=== PATIENT | male | born 1960 | race Caucasian/White ===

== ENCOUNTER → 2019-04-30 | Outpatient (CLI) | payer MEDICARE ==
[2019-04-30 11:41] LABS: ALBUMIN 3.6 g/dL (3.5-5.0); BILIRUBIN,TOTAL 0.2 mg/dL (0.2-1.0); CREATININE 1.1 mg/dL (0.5-1.5); POTASSIUM 4.5 mmol/L (3.5-5.1); TOTAL PROTEIN, SERUM 7.4 g/dL (6.0-8.3)
== END | disposition home or self-care (01) ==
LOC: LAB 11:05
PROVIDERS: ATTEND Internal Medicine
DX: M51.37 Other intervertebral disc degeneration, lumbosacral region (principal); I10 Essential (primary) hypertension; Z86.61 Personal history of infections of the central nervous system
CPT/HCPCS: 36415; 80053

== ENCOUNTER → 2019-05-01 | Outpatient (CLI) | payer MEDICARE ==
[~2019-05-01] MED LIST: GADODIAMIDE 10 MMOL/20 ML VIAL IV ONE; LORAZEPAM 2 MG/ML 1 ML VIAL ONE; MIDAZOLAM HCL 1 MG/ML 2ML VIAL ONE
--- NOTE | 2019-05-01 08:45 | NUR ---
MRI BRAIN WITH AND WITHOUT CONTRAST WITH CONSCIOUS SEDATION PATIENT TOLERATED PROCEDURE WELL. HEPLOCK REMOVED AND PATIENT RECOVERED IN RADIOLOGY ROOM. DISCHARGE INSTRUCTIONS GIVEN AND VERBALIZED UNDERSTANDING. DISCHARGED AMBULATORY. AAO X3 WITH NO C/O DISCOMFORT.
== END | disposition home or self-care (01) ==
LOC: RAH 07:52
PROVIDERS: ATTEND Internal Medicine
DX: R29.898 Other symptoms and signs involving the musculoskeletal system (principal); Z86.61 Personal history of infections of the central nervous system
CPT/HCPCS: 70553; A9579; J2060; J2250; 99152; 99153

== ENCOUNTER → 2019-07-10 | Outpatient (CLI) | payer MEDICARE | END | disposition home or self-care (01) | LOC: OIH 11:00 | PROVIDERS: ATTEND Internal Medicine | DX: J44.9 Chronic obstructive pulmonary disease, unspecified (principal) | CPT/HCPCS: 71046 ==

== ENCOUNTER 2019-08-21 12:16 | Emergency (ER) | payer MEDICARE ==
[2019-08-21] MEDS ORDERED: OCTYL 2-CYANOACRYLATE 1 EACH TP ONE (13:02)
[2019-08-21] MEDS ORDERED: TETANUS/DIPHTHERIA TOXOID [ADULT] 0.5 ML VIAL IM ONE (13:27)
== END 2019-08-21 13:43 | disposition home or self-care (01) ==
LOC: EDH 12:16
DX: S51.812A Laceration without foreign body of left forearm, initial encounter (principal); I10 Essential (primary) hypertension; Z87.891 Personal history of nicotine dependence; W18.39XA Other fall on same level, initial encounter; Y93.89 Activity, other specified; Y92.096 Garden or yard of other non-institutional residence as the place of occurrence of the external cause; Y99.8 Other external cause status
CPT/HCPCS: 12032; 90471; 90714

== ENCOUNTER → 2020-07-06 | Outpatient (CLI) | payer MEDICARE | END | disposition home or self-care (01) | LOC: OIH 08:40 | PROVIDERS: ATTEND Internal Medicine | DX: M16.11 Unilateral primary osteoarthritis, right hip (principal) | CPT/HCPCS: 73502 ==

== ENCOUNTER 2021-11-03 23:20 | Emergency (ER) | payer MEDICARE ==
[~2021-11-03] VITALS: Ht 175.3 cm; Wt 81.6 kg
[2021-11-04] MEDS ORDERED: KETOROLAC 60 MG VIAL (30MG/ML) IM ONE (01:00)
[2021-11-04] MEDS ORDERED: ORPHENADRINE CITRATE 30 MG/ML ML IM ONE (01:00)
[2021-11-04] MEDS ORDERED: ORPH-43 PO (01:26)
[2021-11-04] MEDS ORDERED: MELO7.5T12 PO (01:26)
[2021-11-04] MEDS ORDERED: LIDOP TP (01:26)
[2021-11-04] MEDS ORDERED: DEXAMETHASONE 4 MG TAB PO ONE (01:30)
[2021-11-04 01:32] VITALS: BP 106/52
== END 2021-11-04 01:41 | disposition home or self-care (01) ==
LOC: EDH 23:20
DX: M25.561 Pain in right knee (principal); M62.838 Other muscle spasm; M25.461 Effusion, right knee; I10 Essential (primary) hypertension; E78.00 Pure hypercholesterolemia, unspecified; Z79.899 Other long term (current) drug therapy
CPT/HCPCS: 73562; 96372 ×2; 99284; J1885; J2360; J8540